=== PATIENT | male | born 1940 | race Caucasian/White ===

== ENCOUNTER 2020-08-03 13:04 | Emergency (ER) | payer MEDICARE, BC ==
[~2020-08-03] VITALS: Ht 175.3 cm; Wt 92.0 kg
[~2020-08-03 13:04] MED LIST: ALEVE220 M2 OR; BABY ASPIRIN81 MG OR; CARDIZEM C2 OR; FISH OIL1200 MG OR; FLONASE SPRAY50 MCG; GLUCOSAMINE1500 MG OR; VERAPAMIL OR; ZYRTEC5 M1 OR
[2020-08-03 14:17] LABS: HEMATOCRIT 42.1 % (39.0-50.0); IMMATURE GRANULOCYTES 0.3 % (0.0-5.0); MEAN CELL VOLUME 95.7 fL CALC (80.0-100.0); MEAN CORPUSCULAR HGB 31.8 pG CALC (26.0-32.0); MEAN CORPUSCULAR HGB CONC 33.3 g/dL CAL (32.0-36.0); NEUT# 4.12 thou/uL (1.82-7.42); RED BLOOD COUNT 4.4 mill/uL (4.70-6.10); RED CELL DISTRI WIDTH 13.8 % (11.5-15.5)
[2020-08-03 14:23] LABS: ALBUMIN 4.4 g/dL (3.2-5.0); ALKALINE PHOSPHATASE 75 u/l (38-126); ANION GAP 11 (6-22 (CALC)); BILIRUBIN, TOTAL 0.5 mg/dL (0.0-1.4); BUN 18 mg/dL (8-23); BUN/CREATININE RATIO 20 (12-20 (CALC)); CARBON DIOXIDE 29 mmol/l (22-30); CHLORIDE 102 mmol/l (95-108); CREATININE 0.9 mg/dL (0.7-1.3); GFR > 60 ML/MIN (>=60 (CALC)); GFR FOR AFR.AMER. > 60 ML/MIN (>=60 (CALC)); LIPASE 80 u/l (23-300); POTASSIUM 4.5 mmol/l (3.5-5.1); SGOT/AST 33 u/l (19-48); SODIUM 138 mmol/l (137-146); TOTAL PROTEIN 7.8 g/dL (6.3-8.2)
[2020-08-03] MEDS ORDERED: CARVEDILOL25 MG PO (14:28)
[2020-08-03] MEDS ORDERED: EQ OMEPRAZOLE O20 MG PO (14:29)
[2020-08-03] MEDS ORDERED: PROAIR HFA108 MCG/AC (14:29)
[2020-08-03] MEDS ORDERED: TAMSULOSIN0.4 MG PO (14:30)
[2020-08-03] MEDS ORDERED: ADVAIR DISK1 INH (14:30)
[2020-08-03] MEDS ORDERED: LISINOPRIL5 MG PO (14:30)
[2020-08-03] MEDS ORDERED: POTASSIUM99 MG PO (14:31)
[2020-08-03] MEDS ORDERED: WARFARIN5 MG PO (14:31)
[2020-08-03] MEDS ORDERED: FUROSEMIDE20 MG PO (14:32)
[2020-08-03 17:55] VITALS: BP 169/77
== END 2020-08-03 17:55 | disposition home or self-care (01) ==
LOC: ED 13:04 → ED-I 14:00 → ED 17:55
PROVIDERS: Family Medicine
DX: R07.9 Chest pain, unspecified (principal); I10 Essential (primary) hypertension; C34.90 Malignant neoplasm of unspecified part of unspecified bronchus or lung; Z92.3 Personal history of irradiation; Z95.810 Presence of automatic (implantable) cardiac defibrillator; Z20.822 Contact with and (suspected) exposure to COVID-19